=== PATIENT | male | born 1955 | race Caucasian/White ===

== ENCOUNTER 2016-08-29 18:14 | Emergency (ER) | payer OTHER ==
[~2016-08-29] VITALS: Ht 182.9 cm; Wt 130.0 kg
[~2016-08-29 18:14] MED LIST: 1-ME1LIQ PO; ASPI81TA82 PO; DILA4TAB10 PO; HYDR-2768 PO; MAGN400C2 PO; MYCO360 PO; OXYC10 PO; PROG1CAP PO; PROT40TA PO
[2016-08-29 18:16] VITALS: BP 163/78; PULSE 88; RESP 24; TEMP 98.4; O2SAT 98
[2016-08-29] MEDS ORDERED: TACR1CAP PO (18:41)
[2016-08-29] MEDS ORDERED: HYDR-3516 PO (18:41)
[2016-08-29] MEDS ORDERED: HYDR25TA5 PO (18:41)
[2016-08-29] MEDS ORDERED: SODIUM CHLOR 0.9% 1000 ML INJ 1,000 ML IV SCH (18:47)
[2016-08-29] MEDS ORDERED: SODIUM CHLORIDE 0.9% FLUSH 5 ML FLUSH IVF PRN (19:00)
[2016-08-29 19:30] LABS: BLOOD, URINE NEG (NEG); COMMENT (UR) CULT NOT INDICATED; CULTURE IF INDICATED CULT NOT INDICATED; GLUCOSE,URINE NEG (NEG); KETONE, URINE NEG (NEG); MUCUS URINE FEW /lpf (OCC); NITRITE,URINE NEG (NEG); PH, URINE 5.5 (5.0-8.5); SQUAMOUS EPITHELIAL CELL URINE <1 /hpf (0-5); URINE COLOR YELLOW (YELLW/STRAW)
[2016-08-29 19:31] LABS: AUTOMATED NEUTROPHIL # 2.3 TH/MM3 (1.8-7.7); BASOPHIL % 0.4 % (0.0-2.0); EOSINOPHIL # 0.1 TH/MM3 (0-0.4); EOSINOPHIL % 1.8 % (0.0-4.0); HEMATOCRIT 23.6 % (39.0-51.0); HEMO FLAGS DIFF FINAL; LYMPH % 15.9 % (9.0-44.0); LYMPHOCYTE # 0.5 TH/MM3 (1.0-4.8); MEAN CELL VOLUME 94.1 FL (80.0-100.0); MEAN CORPUSCULAR HEMOGLOBIN 31.6 PG (27.0-34.0); MEAN CORPUSCULAR HGB CONC 33.5 % (32.0-36.0); MONO % 7.4 % (0.0-8.0); NEUT % 74.5 % (16.0-70.0); PLATELET COUNT 145 TH/MM3 (150-450); RED BLOOD COUNT 2.51 MIL/MM3 (4.50-5.90); RED CELL DISTRIBUTION WIDTH 18.9 % (11.6-17.2); WHITE BLOOD COUNT 3.1 TH/MM3 (4.0-11.0)
[2016-08-29 19:36] LABS: APTT (PATIENT) 26.6 SEC (24.3-30.1); PROTHROMBIN TIME - PATIENT 11.1 SEC (9.8-11.6)
[2016-08-29 19:44] LABS: ANION GAP 7 MEQ/L (5-15); AST (GOT) 9 U/L (15-37); BICARBONATE 24.5 MEQ/L (21.0-32.0); BLOOD UREA NITROGEN 17 MG/DL (7-18); CHLORIDE 109 MEQ/L (98-107); GLOMERULAR FILTRATION RATE 43 ML/MIN (>89); POTASSIUM 4.1 MEQ/L (3.5-5.1); SODIUM (NA) 140 MEQ/L (136-145)
[2016-08-29 19:47] LABS: ALKALINE PHOSPHATASE 115 U/L (45-117); ALT (GPT) 25 U/L (12-78); TOTAL BILIRUBIN ADULT 0.7 MG/DL (0.2-1.0)
--- NOTE | 2016-08-29 20:58 | PD ---
HPI Chief Complaint: General Weakness Time Seen by Provider: 18:40 Travel History International Travel<30 days: No Contact w/Intl Traveler<30days: No Traveled to known affect area: No History of Present Illness HPI Patient is a 61-year-old male with history of anal cancer, presents to emergency room with complaints of generalized weakness. Patient reports that he last received chemotherapy 3 weeks ago. Patient reports that he has been feeling weak since July 2016. Reports that in July, he received one unit of blood, reports that he was supposed to receive 2 units of blood but did only got one unit. Patient concerned that he may be anemic requiring blood transfusion. Patient denies fever/chills. Denies chest pain/sob. Denies abdominal pain. Denies cough/congestion. No other c/o. PFSH Past Medical History Chemotherapy: Yes (08/04/16) Hypertension: Yes Medical other: Yes (rectal ca ) Influenza Vaccination: No Past Surgical History Other Surgery: Yes (liver transplant ) Social History Alcohol Use: No (unknown) Tobacco Use: No (1-2 ppd ) Substance Use: No Allergies-Medications (Allergen,Severity, Reaction): Coded Allergies: No Known Allergies (Unverified , 08/29/16) Reported Meds & Prescriptions Reported Meds & Active Scripts Active Reported Hydrocodone-Acetaminophen 5-325 mg Tab 1 Tab PO Q6H PRN Tacrolimus 1 Mg Cap 2 Mg PO Q12H Hydrochlorothiazide 25 Mg Tab 25 Mg PO DAILY Review of Systems General / Constitutional: No: Fever Eyes: No: Visual changes HENT: No: Headaches Cardiovascular: No: Chest Pain or Discomfort Respiratory: No: Shortness of Breath Gastrointestinal: No: Abdominal Pain Genitourinary: No: Dysuria Musculoskeletal: No: Pain Skin: No Rash Neurologic: Positive: Weakness Psychiatric: No: Depression Endocrine: No: Polydipsia Hematologic/Lymphatic: No: Easy Bruising Physical Exam Narrative GENERAL: nad, nontoxic SKIN: Warm and dry. HEAD: Atraumatic. Normocephalic. EYES: Pupils equal and round. No scleral icterus. No injection or drainage. ENT: No nasal bleeding or discharge. Mucous membranes pink and moist. NECK: Trachea midline. No JVD. CARDIOVASCULAR: Regular rate and rhythm. No murmur appreciated. RESPIRATORY: No accessory muscle use. Clear to auscultation. Breath sounds equal bilaterally. GASTROINTESTINAL: Abdomen soft, non-tender, nondistended. Hepatic and splenic margins not palpable. MUSCULOSKELETAL: No obvious deformities. No clubbing. No cyanosis. No edema. NEUROLOGICAL: Awake and alert. No obvious cranial nerve deficits. Motor grossly within normal limits. Normal speech. PSYCHIATRIC: Appropriate mood and affect; insight and judgment normal. Data Data Last Documented VS Vital Signs Date Time Temp Pulse Resp B/P Pulse Ox O2 Delivery O2 Flow Rate FiO2 08/29/16 21:00 74 18 117/59 98 08/29/16 18:16 98.4 Room Air Orders Complete Blood Count With Diff (08/29/16 18:47) Comprehensive Metabolic Panel (08/29/16 18:47) Lipase (08/29/16 18:47) Prothrombin Time / Inr (Pt) (08/29/16 18:47) Act Partial Throm Time (Ptt) (08/29/16 18:47) Urinalysis - C+S If Indicated (08/29/16 18:47) Iv Access Insert/Monitor (08/29/16 18:47) Sodium Chlor 0.9% 1000 Ml Inj (Ns 1000 M (08/29/16 18:47) Sodium Chloride 0.9% Flush (Ns Flush) (08/29/16 19:00) Electrocardiogram (08/29/16 18:47) Chest, Single Ap (08/29/16 19:46) Heparin Central Flush (Heparin Central F (08/29/16 21:15) Labs Laboratory Tests Test 08/29/16 08/29/16 18:58 19:04 White Blood Count 3.1 TH/MM3 Red Blood Count 2.51 MIL/MM3 Hemoglobin 7.9 GM/DL Hematocrit 23.6 % Mean Corpuscular Volume 94.1 FL Mean Corpuscular Hemoglobin 31.6 PG Mean Corpuscular Hemoglobin 33.5 % Concent Red Cell Distribution Width 18.9 % Platelet Count 145 TH/MM3 Mean Platelet Volume 10.2 FL Neutrophils (%) (Auto) 74.5 % Lymphocytes (%) (Auto) 15.9 % Monocytes (%) (Auto) 7.4 % Eosinophils (%) (Auto) 1.8 % Basophils (%) (Auto) 0.4 % Neutrophils # (Auto) 2.3 TH/MM3 Lymphocytes # (Auto) 0.5 TH/MM3 Monocytes # (Auto) 0.2 TH/MM3 Eosinophils # (Auto) 0.1 TH/MM3 Basophils # (Auto) 0.0 TH/MM3 CBC Comment DIFF FINAL Differential Comment Prothrombin Time 11.1 SEC Prothromb Time International 1.0 RATIO Ratio Activated Partial 26.6 SEC Thromboplast Time Sodium Level 140 MEQ/L Potassium Level 4.1 MEQ/L Chloride Level 109 MEQ/L Carbon Dioxide Level 24.5 MEQ/L Anion Gap 7 MEQ/L Blood Urea Nitrogen 17 MG/DL Creatinine 1.63 MG/DL Estimat Glomerular Filtration 43 ML/MIN Rate Random Glucose 115 MG/DL Calcium Level 8.2 MG/DL Total Bilirubin 0.7 MG/DL Aspartate Amino Transf 9 U/L (AST/SGOT) Alanine Aminotransferase 25 U/L (ALT/SGPT) Alkaline Phosphatase 115 U/L Total Protein 6.4 GM/DL Albumin 3.4 GM/DL Lipase 48 U/L Urine Color YELLOW Urine Turbidity CLEAR Urine pH 5.5 Urine Specific [place] 1.017 Urine Protein TRACE mg/dL Urine Glucose (UA) NEG mg/dL Urine Ketones NEG mg/dL Urine Occult Blood NEG Urine Nitrite NEG Urine Bilirubin NEG Urine Urobilinogen LESS THAN 2.0 MG/DL Urine Leukocyte Esterase NEG Urine WBC 1 /hpf Urine Squamous Epithelial <1 /hpf Cells Urine Mucus FEW /lpf Microscopic Urinalysis Comment CULT NOT INDICATED MDM Medical Decision Making Medical Screen Exam Complete: Yes Emergency Medical Condition: Yes Interpretation(s) EKG at 1901: Normal sinus rhythm at 70 bpm, QT/QTc 352/386, no acute ST-T wave changes Vital Signs Date Time Temp Pulse Resp B/P Pulse Ox O2 Delivery O2 Flow Rate FiO2 08/29/16 21:00 74 18 117/59 98 08/29/16 18:33 26 08/29/16 18:16 98.4 88 24 163/78 98 Room Air Laboratory Tests Test 08/29/16 08/29/16 18:58 19:04 White Blood Count 3.1 TH/MM3 (4.0-11.0) Red Blood Count 2.51 MIL/MM3 (4.50-5.90) Hemoglobin 7.9 GM/DL (13.0-17.0) Hematocrit 23.6 % (39.0-51.0) Mean Corpuscular Volume 94.1 FL (80.0-100.0) Mean Corpuscular Hemoglobin 31.6 PG (27.0-34.0) Mean Corpuscular Hemoglobin 33.5 % Concent (32.0-36.0) Red Cell Distribution Width 18.9 % (11.6-17.2) Platelet Count 145 TH/MM3 (150-450) Mean Platelet Volume 10.2 FL (7.0-11.0) Neutrophils (%) (Auto) 74.5 % (16.0-70.0) Lymphocytes (%) (Auto) 15.9 % (9.0-44.0) Monocytes (%) (Auto) 7.4 % (0.0-8.0) Eosinophils (%) (Auto) 1.8 % (0.0-4.0) Basophils (%) (Auto) 0.4 % (0.0-2.0) Neutrophils # (Auto) 2.3 TH/MM3 (1.8-7.7) Lymphocytes # (Auto) 0.5 TH/MM3 (1.0-4.8) Monocytes # (Auto) 0.2 TH/MM3 (0-0.9) Eosinophils # (Auto) 0.1 TH/MM3 (0-0.4) Basophils # (Auto) 0.0 TH/MM3 (0-0.2) CBC Comment DIFF FINAL Differential Comment Prothrombin Time 11.1 SEC (9.8-11.6) Prothromb Time International 1.0 RATIO Ratio Activated Partial 26.6 SEC Thromboplast Time (24.3-30.1) Sodium Level 140 MEQ/L (136-145) Potassium Level 4.1 MEQ/L (3.5-5.1) Chloride Level 109 MEQ/L (98-107) Carbon Dioxide Level 24.5 MEQ/L (21.0-32.0) Anion Gap 7 MEQ/L (5-15) Blood Urea Nitrogen 17 MG/DL (7-18) Creatinine 1.63 MG/DL (0.60-1.30) Estimat Glomerular Filtration 43 ML/MIN (>89) Rate Random Glucose 115 MG/DL (74-106) Calcium Level 8.2 MG/DL (8.5-10.1) Total Bilirubin 0.7 MG/DL (0.2-1.0) Aspartate Amino Transf 9 U/L (15-37) (AST/SGOT) Alanine Aminotransferase 25 U/L (12-78) (ALT/SGPT) Alkaline Phosphatase 115 U/L (45-117) Total Protein 6.4 GM/DL (6.4-8.2) Albumin 3.4 GM/DL (3.4-5.0) Lipase 48 U/L (73-393) Urine Color YELLOW (YELLW/STRAW) Urine Turbidity CLEAR (CLEAR) Urine pH 5.5 (5.0-8.5) Urine Specific [place] 1.017 (1.002-1.035) Urine Protein TRACE mg/dL (NEG-TRACE) Urine Glucose (UA) NEG mg/dL (NEG) Urine Ketones NEG mg/dL (NEG) Urine Occult Blood NEG (NEG) Urine Nitrite NEG (NEG) Urine Bilirubin NEG (NEG) Urine Urobilinogen LESS THAN 2.0 MG/DL (LESS THAN 2.0) Urine Leukocyte Esterase NEG (NEG) Urine WBC 1 /hpf (0-5) Urine Squamous Epithelial <1 /hpf (0-5) Cells Urine Mucus FEW /lpf (OCC) Microscopic Urinalysis Comment CULT NOT INDICATED Differential Diagnosis Symptomatic anemia, electrolyte abnormality, liver failure Narrative Course Patient is a 61-year-old male who presents to emergency room for evaluation of generalized weakness. Patient reports that he has been feeling weak since July, reports that he has been anemic and required blood transfusions. Reports that he required 2 units of blood contusion July but only got 1 unit of blood. Patient concerned that his weakness may be from anemia and that he may require blood transfusion. Patient afebrile, vital signs stable. Hemoglobin 7.9 which is stable at this time, this was reviewed with patient. Discussed with him that he will need to follow-up with his primary care doctor, as well as his oncologist. Creatinine is 1.63. Patient was given 1 L fluid in the emergency room, patient is dehydrated, discussed with patient need to maintain his fluid intake. Signs and symptoms of when to return to the emergency room reviewed patient in detail. Diagnosis Primary Impression: Anemia Qualified Code: D64.9 - Anemia, unspecified type Additional Impressions: Dehydration Thrombocytopenia Patient Instructions: General Instructions Additional Instructions: Please return to ER as needed Please follow-up with your primary care doctor as well as your oncologist as soon as possible Disposition: 01 DISCHARGE HOME Condition: Stable Annette Henley DO Aug 29, 2016 20:58
[2016-08-29 21:00] VITALS: BP 117/59
--- NOTE | 2016-08-29 21:21 | RADRPT ---
EXAM DATE/TIME: 08/29/2016 20:29 [facility] COMPARISON: No previous studies available for comparison. INDICATIONS : Patient complains of cough. MEDICAL HISTORY : Carcinoma, anal. SURGICAL HISTORY : [id number]. ENCOUNTER: Initial ACUITY: 1 week PAIN SCORE: 0/10 LOCATION: Chest FINDINGS: The heart size is normal. The lungs are grossly clear. The patient has a C2 compatible [id number] t in place from the right internal jugular approach. No effusion is seen. CONCLUSION: No acute abnormality is seen. Chandler Hurley MD on August 29, 2016 at 20:49 Board Certified Radiologist. This report was verified electronically.
--- NOTE | 2016-08-30 14:11 | EKG ---
Date Performed: 08/29/2016 Time Performed: 19:01:03 PTAGE: 61 years EKG: Sinus rhythm NORMAL ECG NO PREVIOUS TRACING DOCTOR: Rudi Elias Interpretating Date/Time 08/30/2016 14:10:08
== END 2016-08-29 21:45 | disposition home or self-care (01) ==
LOC: NEPA 18:14
DX: D64.9 Anemia, unspecified (principal); E86.0 Dehydration; D69.6 Thrombocytopenia, unspecified; I10 Essential (primary) hypertension; Z85.048 Personal history of other malignant neoplasm of rectum, rectosigmoid junction, and anus
CPT/HCPCS: 71010; 80053; 81001; 83690; 85025; 85610; 85730; 93005; 96360; 96361; 99285; J1642; J7030

== ENCOUNTER → 2017-05-08 | Outpatient (CLI) | payer OTHER ==
[~2017-05-08] MED LIST changes: -1-ME1LIQ PO; +AMLO2.5T PO; +ANDR1GEL TOPICAL; -ASPI81TA82 PO; -DILA4TAB10 PO; +FURO40TA PO; -HYDR-2768 PO; +HYDR-3516 PO; +HYDR25TA5 PO; -MAGN400C2 PO; +MORP1TAB25 PO; +MSIR30 PO; -MYCO360 PO; -OXYC10 PO; -PROG1CAP PO; -PROT40TA PO; +TACR1 PO; +TACR1CAP PO; +ZANT150T2 PO
--- NOTE | 2017-05-08 12:35 | RADRPT ---
EXAM DATE/TIME: 05/08/2017 12:14 [facility] COMPARISON: CHEST SINGLE AP, August 29, 2016, 20:29. INDICATIONS : Evaluate for penumonia, pneumothorax, or communicable disease. Pre op for colostomy. MEDICAL HISTORY : Hypertension. Carcinoma, colon. Chemotherapy. Smoker. SURGICAL HISTORY : Liver transplant. ENCOUNTER: Initial ACUITY: 1 day PAIN SCORE: 0/10 LOCATION: chest FINDINGS: The heart is normal in size. There are moderate COPD changes. These are stable compared to previous. The [id number] has been removed. The osseous structures demonstrate degenerative changes in the spine but are otherwise intact. CONCLUSION: 1. COPD changes. No acute abnormality. Jayjay Badillo MD on May 08, 2017 at 12:33 Board Certified Radiologist. This report was verified electronically.
--- NOTE | 2017-05-09 16:48 | EKG ---
Date Performed: 05/08/2017 Time Performed: 11:56:00 PTAGE: 62 years EKG: Sinus rhythm NORMAL ECG PREVIOUS TRACING 08/29/2016 @ 19.01 Compared to prior tracing no significant change DOCTOR: Onesimo Garcia Interpretating Date/Time 05/09/2017 16:48:18
== END ==
LOC: CPRE 10:50
PROVIDERS: ATTEND Colon & Rectal Surgery
DX: Z01.810 Encounter for preprocedural cardiovascular examination (principal); Z01.818 Encounter for other preprocedural examination; C21.1 Malignant neoplasm of anal canal
CPT/HCPCS: 71020; 93005

== ENCOUNTER 2017-05-12 10:54 | Inpatient (IN) | payer OTHER, MEDICARE ==
[~2017-05-12] VITALS: Ht 180.3 cm; Wt 113.5 kg
[~2017-05-12 10:54] MED LIST changes: -HYDR-3516 PO; -HYDR25TA5 PO; -TACR1CAP PO
[2017-05-12] MEDS ORDERED: DEXAMETHASONE SOD PHOS 4 MG/ML VIAL IV ONE (12:00)
[2017-05-12] MEDS ORDERED: PHENYLEPHRINE HCL 10 MG/ML VIAL IV ONE (12:00)
[2017-05-12] MEDS ORDERED: ceFAZolin INJ 1,000 MG VIAL IV ONE (12:00)
[2017-05-12] MEDS ORDERED: PHENYLEPH/NS 1000 MCG/10 ML SYR IV ONE (12:00)
[2017-05-12] MEDS ORDERED: ROCURONIUM INJ 50 MG/5 ML SYRINGE IV PUSH ONE ×3 (12:00→16:17)
[2017-05-12] MEDS ORDERED: LIDOCAINE HCL 1% PF 5 ML AMPULE OTHER ONE (12:00)
[2017-05-12] MEDS ORDERED: ONDANSETRON HCL 4 MG/2 ML VIAL IV PUSH ONE (12:00)
[2017-05-12] MEDS ORDERED: ePHEDrine/NS 25 MG/5 ML SYR IV ONE (12:00)
[2017-05-12] MEDS ORDERED: PROPOFOL 200 MG/20 ML AMP IV ONE ×2 (12:00)
[2017-05-12] MEDS ORDERED: DEXT 5%-NACL 0.9% 1000 ML INJ 1,000 ML IV SCH (12:15)
[2017-05-12] MEDS ORDERED: ceFAZolin 1,000 MG/NS 100 ML IV SCH ×2 (12:15)
[2017-05-12] MEDS ORDERED: METRONIDAZOLE 500 MG/100 ML ISONTONIC SOLN IV SCH (12:15)
[2017-05-12] MEDS ORDERED: ALVIMOPAN 12 MG CAPSULE - On Call PO SCH (12:15)
[2017-05-12] MEDS ORDERED: INSULIN HUMAN REGULAR 1,000 UNITS/10 ML VIAL SQ PRN (12:30)
[2017-05-12] MEDS ORDERED: CHLORHEXIDINE GLUCONATE 2 % 1 PACK (2 CLOTHS) TOPICAL PRN (12:30)
[2017-05-12] MEDS ORDERED: METOPROLOL TARTRATE 25 MG TAB PO PRN (12:30)
[2017-05-12] MEDS ORDERED: LACTATED RINGER'S 1000 ML IV PRN (12:30)
[2017-05-12] MEDS ORDERED: SODIUM CHLORID 0.9% 500 ML IV PRN (12:30)
[2017-05-12] MEDS ORDERED: POVIDONE IODINE 5% (ANTISEPSIS KIT) 4 APPLICATIONS EACH NARE PRN (12:30)
[2017-05-12] MEDS ORDERED: RESP: ALBUTEROL 2.5 MG/3 ML NEB (SCH) ONE ×2 (13:15→15:01)
[2017-05-12] MEDS ORDERED: MIDAZOLAM HCL 2 MG/2 ML VIAL ONE (13:20)
--- NOTE | 2017-05-12 14:41 | PD.WCN.NOT ---
Wound Consult Description: Consult placed on 05/12/17 @ 1301 for pre op ostomy marking for permanent colostomy. Communicated with: Patient Additional Information: Patient seen in [facility] for ostomy marking. Patient sat up on stretcher after being placed on a bed vinson upon arrival. Patient was asked to cough to assess for the rectus muscles. 2 sites chosen for permanent colostomy and marked with X1 and X2. Both sites were placed outside the umbilicus area and in the rectus muscle on the upper left and lower left quadrants of the abdomen. There were no folds or creases in these areas. Patient states he and his will be taking care of the ostomy. Patient states that he wears his pants and belt lower on his hips. Phyllis Elias [facility] May 12, 2017 14:41
[2017-05-12] MEDS ORDERED: methylPREDNISolone SOD SUCC 125 MG/2 ML VIAL ONE (15:01)
[2017-05-12] MEDS ORDERED: HYDROmorphone HCL PF 2 MG/ML VIAL ONE (15:25)
[2017-05-12] MEDS ORDERED: SUGAMMADEX SODIUM 200 MG/2 ML VIAL IV PUSH ONE ×2 (15:25)
[2017-05-12] MEDS ORDERED: HYDROmorphone HCL PF 1 MG/ML VIAL ONE (17:22)
[2017-05-12] MEDS ORDERED: BENZOCAINE 6 MG/MENTHOL 10 MG LOZENGE BUCCAL PRN (17:30)
[2017-05-12] MEDS ORDERED: SODIUM CHLORIDE 0.9% FLUSH 10 ML FLUSH IV FLUSH PRN (17:30)
[2017-05-12] MEDS ORDERED: ENALAPRILAT 1.25 MG/ML VIAL IV PUSH PRN (17:30)
[2017-05-12] MEDS ORDERED: NALOXONE HCL 0.4 MG/ML AMP IV PUSH PRN (17:30)
[2017-05-12] MEDS ORDERED: Post-op Orders (for Pharmacy) MISC XX ONE (17:30)
[2017-05-12] MEDS ORDERED: POTASSIUM CHLOR 20 MEQ PREMIX 100 ML IV PRN (17:30)
[2017-05-12] MEDS ORDERED: POTASSIUM CHLOR 40 MEQ PREMIX 100 ML IV PRN (17:30)
[2017-05-12] MEDS ORDERED: oxyCODONE/ACETAMINOPHEN 5 MG/325 MG TAB PO PRN ×2 (17:30)
[2017-05-12] MEDS ORDERED: *HYDROmorphone PF 1 MG VIAL PERIprocedural Use ONLY ONE ×2 (17:31→18:29)
[2017-05-12] MEDS ORDERED: *MEPERIDINE 25 MG INJ VIAL PERIprocedural Use ONLY ONE (17:40)
[2017-05-12] MEDS ORDERED: *hydrOXYzine 25 MG VIAL PERIprocedural Use ONLY IM ONE (17:56)
[2017-05-12] MEDS: D5-LR + KCL 20 MEQ INJ 1,000 ML IV SCH (18:00)
[2017-05-12] MEDS: METOCLOPRAMIDE HCL 10 MG/2 ML VIAL IVS SCH (18:00)
[2017-05-12] MEDS ORDERED: PILL SPLITTER OTHER PRN (18:15)
[2017-05-12] MEDS ORDERED: *morphine SULFATE 8 MG/ML PERIprocedure ONLY ONE (18:21)
[2017-05-12 18:38] LABS: BASOPHIL % 0.1 % (0.0-2.0); HEMATOCRIT 42.5 % (39.0-51.0); LYMPHOCYTE # 0.4 TH/MM3 (1.0-4.8); MEAN CORPUSCULAR HEMOGLOBIN 29.1 PG (27.0-34.0); MEAN CORPUSCULAR HGB CONC 33.1 % (32.0-36.0); NEUT % 95.9 % (16.0-70.0); PLATELET COUNT 186 TH/MM3 (150-450); RED BLOOD COUNT 4.83 MIL/MM3 (4.50-5.90); RED CELL DISTRIBUTION WIDTH 14.1 % (11.6-17.2); WHITE BLOOD COUNT 20.9 TH/MM3 (4.0-11.0)
[2017-05-12 18:45] LABS: HEMO FLAGS AUTO DIFF
[2017-05-12] MEDS ORDERED: DO NOT ADM ANY ANTICOAGULANT DRUGS PRN (18:45)
[2017-05-12 18:55] VITALS: BP 155/78; PULSE 90; RESP 16; TEMP 98.8; O2SAT 98
[2017-05-12 18:59] LABS: BICARBONATE 19.5 MEQ/L (21.0-32.0); POTASSIUM 3.6 MEQ/L (3.5-5.1)
[2017-05-12 19:00] VITALS: PULSE 90
[2017-05-12] MEDS: MORPHINE SULFATE 30 MG/30 ML PCA IV SCH ×2 (19:38→20:20)
[2017-05-12 19:49] LABS: BANDS 9 % (0-6); METAMYELOCYTES 2 % (0-1); NEUTROPHIL # MANUAL DIFF 19.6 TH/MM3 (1.8-7.7); PLATELET ESTIMATE SMEAR NORMAL (NORMAL); PLATELET MORPHOLOGY NORMAL (NORMAL); POLYS (SEG NEUTROPHILS) 83 % (16-70); SCAN/DIFF FINAL DIFF MANUAL; WBC DIFF SAMPLE 100
--- NOTE | 2017-05-12 19:56 | MP ---
cc: SARAH BORDEN,ROD ANDERS MD, DR., DATE OF SURGERY 05/12/17 PREOPERATIVE DIAGNOSIS 1. Anal carcinoma. 2. Ventral hernia POSTOPERATIVE DIAGNOSIS 1. Anal carcinoma 2. Ventral hernia PROCEDURE 1. Abdominal perineal resection with permanent colostomy 2. Omental flap 3. Ventral hernia repair ANESTHESIA General endotracheal SURGEON Dr. Marquita Donaldson LAWN CARETAKER Dr. Gurdeep Garcia ESTIMATED BLOOD LOSS 600 mL. OPERATING TIME 2 hours and 15 minutes OPERATIVE FINDINGS This patient is approximately four or five years status post liver transplant for hepatitis C at the [facility] in [place]. The patient developed anal carcinoma and was treated with radiation and a partial dose of chemotherapy. However, he could not tolerate the chemotherapy. He therefore completed his radiation therapy and, upon completion of radiation therapy, continued to have severe anal pain and there was an indolent ulcer present in the right lateral anal canal. Biopsies of this ulcer were done and showed residual squamous cell carcinoma. For this reason, abdominal perineal resection was recommended. At surgery, a rectosigmoidectomy was done with abdominal perineal resection and permanent colostomy and an omental flap was placed in the pelvis. Exploration of the abdominal cavity revealed that the right portion of the liver was palpable and was normal. He did have a right flank hernia from his previous Chevron incision from his liver transplant and this was repaired as well. The remainder of the abdominal exploration was normal with small bowel remainder of the colon was palpably normal and I could not palpate the left lobe of the liver. OPERATIVE TECHNIQUE The patient was placed on the table in the supine position. After adequate general endotracheal anesthesia, a midline incision was made from the pubis to the Xiphoid to the right of the umbilicus. The linea alba was entered in the upper abdomen and the abdominal cavity was entered with the above-mentioned findings. There was not much in the way of adhesions. He did have this right flank hernia from his previous Chevron incision from his liver transplant. Omentum was in that and that was reduced easily. Our attention was turned to the sigmoid colon and the descending colon. It was mobilized along its peritoneal reflection. The left ureter was identified and protected at all times. There was a lot of fibrosis from probable previous mobilization of this portion of the colon, possibly for his liver transplant. Nevertheless, the superior hemorrhoidal vessels were doubly clamped, cut and doubly ligated with 0 Vicryl ligature and the retrorectal space was entered and, after getting through the fibrosis in the upper pelvis, the retrorectal dissection was relatively easy other than he had a very small male pelvis. The lateral pelvic peritoneum was incised bilaterally and the dissection was taken down laterally and posteriorly. Anteriorly, it was not easy to determine the cul-de-sac posterior to the prostate, but Denonvilliers fascia was eventually incised and dissection was taken down to the pelvic floor. Once this was done, I then went below and did the perineal portion of the resection and Gelpi retractors were placed and an elliptical skin incision was made around the buttocks and anal canal. The incision was taken down into the ischiorectal fat and then posteriorly anterior to the coccyx and the pelvis was entered posteriorly. Dissection was then taken around the levators incising the levators bilaterally. Care was taken in the right lateral to right anterior position where this ulcerated carcinoma was to take plenty of surrounding fatty tissue while removing this rectum. Once everything except the anterior portion of the rectum was detached, the sigmoid mesentery was clamped, cut and ligated with 0 Vicryl ligatures and the sigmoid was divided with an Ethicon BERT 55 stapling device and the sigmoid was then handed down to the perineum and delivered from the perineal wound. The anterior dissection was then completed and the specimen was removed from the table. Some posterior pelvic fatty tissue was removed and sent separately, although this did not appear to be a portion of the mesorectum. Once this was done, hemostasis was maintained with electrocautery. Next, the pelvis was irrigated thoroughly with 2 liters of saline solution from above and hemostasis was taken care of with electrocautery. Fibrillar was used anteriorly along the prostate bed and then the previously mobilized omentum from the right side of the transverse colon and stomach was brought down the left colic gutter and placed in the pelvis. The pelvic wound was then closed using interrupted 0 Vicryl sutures to close the subcutaneous tissue and then the skin was closed with interrupted 0 Vicryl subcuticular sutures. Dressing was applied. Next, the previously mobilized sigmoid colon was brought out through the previously marked stoma site in the left upper quadrant in the mid portion of the rectus muscle and then the bowels were replaced in the abdominal cavity in an rn palliative manner after thorough irrigation and inspection for hemostasis. The right sided ventral hernia was repaired with a single running #1 PDS suture. Next, the midline incision was closed with a double-stranded #! PDS fully closing the wound and then the subcutaneous tissue was irrigated thoroughly with 2 liters of saline solution, aspirated dry and the skin was closed with running 3-0 Vicryl subcuticular suture. The colostomy was matured with a short nipple using interrupted 3-0 Vicryl sutures and a 57-mm appliance was placed. Dressings were applied. It should be mentioned that a flat Boni drain was placed in the pelvis and brought out through a right lower quadrant separate stab wound. It was sutured into place with a nylon suture. Sponge, needle and instrument counts were reported as correct. Estimated blood loss was 600 mL. The patient tolerated the procedure well and left the operating room in good condition. MD CHANCE Garcia/ /5:35 PM /7:31 PM MTDLaurie
[2017-05-12 20:00] VITALS: BP 155/78; PULSE 90; PULSE 94; RESP 16; TEMP 98.8; O2SAT 98
[2017-05-12] MEDS: ZOLPIDEM TARTRATE 5 MG TAB PO PRN (20:59)
[2017-05-12] MEDS: ceFAZolin 2 GM PREMIX 50 ML IV SCH (21:00)
[2017-05-12] MEDS: metroNIDAZOLE 500 MG INJ 100 ML IV SCH (21:00)
[2017-05-12 22:00] VITALS: PULSE 92
[2017-05-12] MEDS: PCA - TOTAL MG MORPHINE DELIVERED PER SHIFT SCH (22:00)
[2017-05-12] MEDS: MORPHINE SULFATE 4 MG/ML INJ IV PRN (22:48)
[2017-05-12 23:00] VITALS: PULSE 90
[2017-05-12] MEDS: TACROLIMUS 1 MG CAP PO SCH (23:12)
[2017-05-12] MEDS: MORPHINE SULFATE 30 MG CONTROLLED RELEASE TAB PO SCH (23:13)
[2017-05-13] VITALS (28 sets, daily range): BP systolic 142–170; BP diastolic 72–88; PULSE 74–104; RESP 16–22; TEMP 98.2–98.8; O2SAT 94–99
[2017-05-13] MEDS: METOCLOPRAMIDE HCL 10 MG/2 ML VIAL IVS SCH ×5 (00:12→23:38)
[2017-05-13] MEDS: MORPHINE SULFATE 4 MG/ML INJ IV PRN ×9 (00:12→17:42)
[2017-05-13] MEDS: MORPHINE SULFATE 30 MG/30 ML PCA IV SCH ×3 (00:39→17:42)
[2017-05-13] MEDS: ceFAZolin 2 GM PREMIX 50 ML IV SCH ×2 (03:25→12:25)
[2017-05-13] MEDS: metroNIDAZOLE 500 MG INJ 100 ML IV SCH ×2 (05:00→13:13)
[2017-05-13] MEDS: PCA - TOTAL MG MORPHINE DELIVERED PER SHIFT SCH ×3 (06:00→21:34)
[2017-05-13 06:03] LABS: AUTOMATED NEUTROPHIL # 15.9 TH/MM3 (1.8-7.7); BASOPHIL % 0.1 % (0.0-2.0); HEMATOCRIT 40.8 % (39.0-51.0); HEMO FLAGS DIFF FINAL; LYMPH % 1.3 % (9.0-44.0); LYMPHOCYTE # 0.2 TH/MM3 (1.0-4.8); MEAN CORPUSCULAR HEMOGLOBIN 28.9 PG (27.0-34.0); MEAN CORPUSCULAR HGB CONC 33.7 % (32.0-36.0); MONO % 3.4 % (0.0-8.0); NEUT % 95.2 % (16.0-70.0); PLATELET COUNT 148 TH/MM3 (150-450); RED BLOOD COUNT 4.75 MIL/MM3 (4.50-5.90); RED CELL DISTRIBUTION WIDTH 14.4 % (11.6-17.2); WHITE BLOOD COUNT 16.7 TH/MM3 (4.0-11.0)
[2017-05-13 06:31] LABS: BICARBONATE 24.3 MEQ/L (21.0-32.0); POTASSIUM 4.3 MEQ/L (3.5-5.1)
[2017-05-13] MEDS: D5-LR + KCL 20 MEQ INJ 1,000 ML IV SCH ×3 (07:20→20:38)
[2017-05-13] MEDS: ALVIMOPAN 12 MG CAPSULE - Post-op dosing PO SCH ×2 (08:40→20:37)
[2017-05-13] MEDS: amLODIPine BESYLATE 5 MG TAB PO SCH (08:40)
[2017-05-13] MEDS: PANTOPRAZOLE SODIUM 40 MG VIAL IVP SCH (08:40)
[2017-05-13] MEDS: TACROLIMUS 1 MG CAP PO SCH ×2 (08:40→20:38)
[2017-05-13] MEDS: SODIUM CHLORIDE 0.9% FLUSH 10 ML FLUSH IV FLUSH SCH ×2 (08:41→20:38)
[2017-05-13] MEDS ORDERED: TESTOSTERONE TOPICAL SCH (09:00)
[2017-05-13] MEDS ORDERED: TESTOSTERONE 50 MG TOPICAL SCH (09:00)
[2017-05-13] MEDS: MORPHINE SULFATE 30 MG CONTROLLED RELEASE TAB PO SCH ×2 (09:29→21:45)
--- NOTE | 2017-05-13 11:38 | PD.WCN.NOT ---
Wound Consult Description: Consult placed on 05/12/17 for new ostomy teaching for colostomy per Dr Donaldson. Communicated with: Patient RN Recommendation: Observe staff open pouch, empty pouch of effluent, and close pouch. Read information regarding Colostomy surgery provided from [facility] in the kit left at bedside. Additional Information: Patient seen on for ostomy assessment, educational materials, and teaching. Ostomy Type: Colostomy (permanent) Surgeon: Chandler Donaldson MD Date of Surgery: May 12, 2017 Complete: Education materials Educated patient on: Staff will be emptying pouch of effluent, observe Reading the educational booklet left for patient at bedside Stoma appearance Consistency of effluent in pouch Changing the barrier every 5-7 days Changing the pouch as needed Additional information Patient seen on for Ostomy assessment and teaching. Patient states that he has been in pain and states pushing the button provided for relief. Education was given to patient as described above. Stoma is visualized on the left upper abdomen and measuring 1 1/2" presently requiring an appliance in size 2 1/4". Stoma is red, round, moist, functioning with ~10ml dark green soft liquid noted to pouch. Barrier and pouch are intact and noted without leaks. It was explained to the patient that typewriter operator automatic would be seeing him daily except weekends. Phyllis Elias [facility] May 13, 2017 11:38
[2017-05-13] MEDS: ONDANSETRON HCL 4 MG/2 ML VIAL IV PUSH PRN ×2 (12:26→21:44)
--- NOTE | 2017-05-13 13:55 | HHI.PR ---
Subjective Remarks Still with pain despite large narcotic doses due to chronic pain med use pre op Objective Vital Signs Date Time Temp Pulse Resp B/P (MAP) Pulse Ox O2 Delivery O2 Flow Rate FiO2 05/13/17 12:39 161/78 (105) 05/13/17 11:30 98.4 87 22 170/77 (108) 95 05/13/17 10:00 78 05/13/17 09:00 74 05/13/17 08:41 20 05/13/17 08:00 88 05/13/17 08:00 98.6 88 20 158/88 (111) 96 05/13/17 07:25 20 05/13/17 07:00 86 05/13/17 06:00 74 05/13/17 06:00 20 05/13/17 05:00 90 05/13/17 04:00 98.7 84 20 142/83 (102) 96 05/13/17 04:00 82 05/13/17 03:00 88 05/13/17 02:00 88 05/13/17 01:00 87 05/13/17 00:39 20 05/13/17 00:00 98.8 87 16 162/78 (106) 99 05/13/17 00:00 88 05/12/17 23:00 90 05/12/17 22:00 92 05/12/17 22:00 22 05/12/17 20:20 20 05/12/17 20:00 94 05/12/17 20:00 98.8 90 16 155/78 (103) 98 05/12/17 20:00 98.8 90 16 155/78 (103) 98 05/12/17 19:38 18 05/12/17 19:00 90 05/12/17 18:55 98.8 90 16 155/78 (103) 98 05/12/17 18:30 98.6 97 15 138/66 (90) 98 Nasal Cannula 3 05/12/17 18:15 94 15 136/64 (88) 98 Nasal Cannula 3 05/12/17 18:00 97 16 140/68 (92) 98 Nasal Cannula 3 05/12/17 17:45 95 16 138/64 (88) 98 Nasal Cannula 3 05/12/17 17:30 97 17 134/65 (88) 94 Nasal Cannula 3 05/12/17 17:23 97.8 96 18 134/68 (90) 94 Nasal Cannula 3 I/O 05/12/17 05/12/17 05/12/17 05/13/17 05/13/17 05/13/17 07:00 15:00 23:00 07:00 15:00 23:00 Intake Total 200 ml 3000 ml 420 ml 50 ml Output Total 825 ml 1810 ml Balance 200 ml 2175 ml -1390 ml 50 ml Intake Oral 420 ml IV Total 200 ml 300 ml 50 ml Other 2700 ml Output Urine Total 175 ml 1650 ml Stool Total 10 ml Drainage Total 50 ml 150 ml Estimated Blood Loss 600 ml # Bowel Movements 1 Result Diagram: 05/13/17 0533 05/13/1733 Objective Remarks VS-S Abd: obese,soft,stoma pink I&Os and Labs-OK Assessment and Plan Assessment and Plan Stable with pain POD#1 Chandler Donaldson MD May 13, 2017 13:55
[2017-05-13] MEDS ORDERED: ALVIMOPAN 12 MG CAPSULE PO SCH (21:00)
[2017-05-13] MEDS: ZOLPIDEM TARTRATE 5 MG TAB PO PRN (23:56)
[2017-05-14] VITALS (19 sets, daily range): BP systolic 155–165; BP diastolic 75–89; PULSE 78–108; RESP 18–21; TEMP 97.5–99.1; O2SAT 92–94
[2017-05-14] MEDS: MORPHINE SULFATE 30 MG/30 ML PCA IV SCH ×2 (00:21→08:55)
[2017-05-14] MEDS: D5-LR + KCL 20 MEQ INJ 1,000 ML IV SCH ×3 (04:05→21:52)
[2017-05-14 05:45] LABS: AUTOMATED NEUTROPHIL # 12.6 TH/MM3 (1.8-7.7); BASOPHIL # 0.1 TH/MM3 (0-0.2); BASOPHIL % 0.4 % (0.0-2.0); EOSINOPHIL % 0.1 % (0.0-4.0); HEMATOCRIT 36.8 % (39.0-51.0); HEMO FLAGS DIFF FINAL; LYMPH % 3.7 % (9.0-44.0); LYMPHOCYTE # 0.5 TH/MM3 (1.0-4.8); MEAN CELL VOLUME 85.1 FL (80.0-100.0); MEAN CORPUSCULAR HEMOGLOBIN 28.8 PG (27.0-34.0); MEAN CORPUSCULAR HGB CONC 33.9 % (32.0-36.0); MONO % 4.5 % (0.0-8.0); NEUT % 91.3 % (16.0-70.0); PLATELET COUNT 141 TH/MM3 (150-450); RED BLOOD COUNT 4.33 MIL/MM3 (4.50-5.90); RED CELL DISTRIBUTION WIDTH 14.7 % (11.6-17.2); WHITE BLOOD COUNT 13.8 TH/MM3 (4.0-11.0)
[2017-05-14] MEDS: PCA - TOTAL MG MORPHINE DELIVERED PER SHIFT SCH (05:46)
[2017-05-14] MEDS: METOCLOPRAMIDE HCL 10 MG/2 ML VIAL IVS SCH ×3 (05:46→18:00)
[2017-05-14 06:14] LABS: BICARBONATE 21.8 MEQ/L (21.0-32.0); POTASSIUM 4.1 MEQ/L (3.5-5.1)
[2017-05-14] MEDS: PANTOPRAZOLE SODIUM 40 MG VIAL IVP SCH (08:58)
[2017-05-14] MEDS: SODIUM CHLORIDE 0.9% FLUSH 10 ML FLUSH IV FLUSH SCH ×2 (08:58→21:00)
[2017-05-14] MEDS: ALVIMOPAN 12 MG CAPSULE - Post-op dosing PO SCH ×2 (08:58→20:57)
[2017-05-14] MEDS: TACROLIMUS 1 MG CAP PO SCH ×2 (08:58→20:57)
[2017-05-14] MEDS: amLODIPine BESYLATE 5 MG TAB PO SCH (09:00)
[2017-05-14] MEDS: MORPHINE SULFATE 30 MG CONTROLLED RELEASE TAB PO SCH ×2 (10:35→22:37)
--- NOTE | 2017-05-14 12:55 | PD.WCN.NOT ---
Wound Consult Description: Consult placed on 05/12/17 for new ostomy teaching for colostomy per Dr Donaldson. Communicated with: Patient JUAN Frankel Recommendation: Participate in opening pouch, emptying pouch of effluent, and closing pouch. Read information regarding Colostomy surgery provided from [facility] in the kit left at bedside and write down any questions you may have in preparation for tomorrow's teaching session with as scheduled. Additional Information: Patient seen on for ostomy assessment and teaching. Ostomy Type: Colostomy (permanent) Surgeon: Chandler Donaldson MD Date of Surgery: May 12, 2017 Complete: Education materials ([facility] kit provided for patient to read and write down any questions he or his may have), Other (appliances ordered for next barrier/pouch change prior to discharge, the remaining appliances are for patient to take homw) Educated patient on: Participating in the care of his ostomy Emptying pouch when 1/3-1/2 full Opening and closing pouch Position of pouch when patient is up in chair and ambulating Stoma size and appearance Amount and type of output How often to change appliance and pouch. Additional information Patient seen on for ostomy assessment and teaching. Questions answered regarding the emptying of the pouch and position of the pouch when in bed vs ambulating and sitting up in chair. Pouch was emptied of dark green liquid effluent ~110ml. Patient was shown how to open and close pouch. Patient states that he has begun to read the educational booklet provided at bedside. Stoma is red, round, moist, moderately protruding, lumen noted in center of stoma and functioning. Plans for more teaching with tomorrow 05/15/17 @Su. Phyllis Elias [facility] May 14, 2017 12:55
--- NOTE | 2017-05-14 13:43 | HHI.PR ---
Subjective Remarks Better pain control. No Nor V. Objective Vital Signs Date Time Temp Pulse Resp B/P (MAP) Pulse Ox O2 Delivery O2 Flow Rate FiO2 05/14/17 12:03 92 05/14/17 11:35 21 05/14/17 11:00 98.1 95 21 155/75 (101) 92 05/14/17 11:00 108 05/14/17 10:00 84 05/14/17 09:00 90 05/14/17 09:00 21 05/14/17 08:55 20 05/14/17 08:00 82 05/14/17 07:00 89 05/14/17 07:00 99.1 78 21 160/77 (104) 94 05/14/17 06:00 90 05/14/17 05:46 18 05/14/17 05:00 87 05/14/17 04:00 86 05/14/17 03:30 98.5 87 18 156/79 (104) 93 05/14/17 03:00 86 05/14/17 02:00 88 05/14/17 01:00 81 05/14/17 00:21 18 05/14/17 00:00 89 05/13/17 23:30 98.2 88 18 160/75 (103) 95 05/13/17 23:00 83 05/13/17 22:00 84 05/13/17 21:34 18 05/13/17 21:00 92 05/13/17 20:00 88 05/13/17 20:00 98.4 85 18 154/78 (103) 94 05/13/17 19:00 95 05/13/17 18:16 100 05/13/17 17:42 22 05/13/17 17:08 104 05/13/17 16:00 100 05/13/17 15:31 98.7 91 19 150/72 (98) 94 05/13/17 15:00 86 05/13/17 14:00 90 05/13/17 14:00 19 I/O 05/13/17 05/13/17 05/13/17 05/14/17 05/14/17 05/14/17 07:00 15:00 23:00 07:00 15:00 23:00 Intake Total 420 ml 1200 ml 720 ml 1990 ml Output Total 1810 ml 1500 ml 1700 ml Balance -1390 ml 1200 ml -780 ml 290 ml Intake Oral 420 ml 720 ml 240 ml IV Total 1200 ml 1750 ml Output Urine Total 1650 ml 1300 ml 1550 ml Stool Total 10 ml Drainage Total 150 ml 200 ml 150 ml Result Diagram: 05/14/1752905/14/17529 Objective Remarks VS-S Abd: obese,soft,stoma pink I&Os better and Labs-OK Assessment and Plan Assessment and Plan Stable with pain POD#2 Increase diet,transfer,back on home pain meds. Chandler Donaldson MD May 14, 2017 13:43
[2017-05-14] MEDS: MORPHINE SULFATE 30 MG TAB PO PRN ×2 (15:48→21:47)
[2017-05-15] VITALS: BP 167/82; PULSE 86; RESP 20; TEMP 98.9; O2SAT 93
[2017-05-15] MEDS: MORPHINE SULFATE 30 MG TAB PO PRN ×3 (01:59→14:43)
[2017-05-15] MEDS: METOCLOPRAMIDE HCL 10 MG/2 ML VIAL IVS SCH ×3 (02:00→12:13)
[2017-05-15 04:00] VITALS: BP 162/82; PULSE 87; RESP 18; TEMP 98.2; O2SAT 93
[2017-05-15 08:00] VITALS: BP 163/83; PULSE 83; RESP 18; TEMP 97.4; O2SAT 94
[2017-05-15] MEDS: ALVIMOPAN 12 MG CAPSULE - Post-op dosing PO SCH (09:54)
[2017-05-15] MEDS: PANTOPRAZOLE SODIUM 40 MG VIAL IVP SCH (09:54)
[2017-05-15] MEDS: TACROLIMUS 1 MG CAP PO SCH (09:54)
[2017-05-15] MEDS: MORPHINE SULFATE 30 MG CONTROLLED RELEASE TAB PO SCH (09:55)
[2017-05-15] MEDS: SODIUM CHLORIDE 0.9% FLUSH 10 ML FLUSH IV FLUSH SCH (09:56)
[2017-05-15] MEDS: amLODIPine BESYLATE 5 MG TAB PO SCH (09:56)
[2017-05-15] MEDS: D5-LR + KCL 20 MEQ INJ 1,000 ML IV SCH (10:12)
[2017-05-15 12:00] VITALS: BP 170/84; PULSE 79; RESP 18; TEMP 98.1; O2SAT 96
[2017-05-15 16:00] VITALS: BP 160/82; PULSE 82; RESP 18; TEMP 97.1; O2SAT 94
--- NOTE | 2017-05-15 16:43 | HHI.FF ---
Face to Face Verification Diagnosis: (1) Cancer of anal canal (2) Colostomy status Home Health Nursing Order: Medical education Signs/symptoms of disease process Medication education-adverse effect Wound care and dressing changes Nursing assessment with vital signs Instructions: Empty drain whenever full. Pt instructed as well. I have seen patient Edison Watson on 05/15/17. My clinical findings support the need for the requested home health care services because: Ltd mobility - disease progression Deconditioned w/ increased weakness Med compliance is questionable Limited ability to care for self Need for psychosocial assistance High risk of falls I certify that my clinical findings support that this patient is homebound because: Post-op weakness Impaired cognitive ability/safety Unsteady gait/balance Unsafe to leave home unassisted Need for psychosocial assistance Chandler Donaldson MD May 15, 2017 16:43
== END 2017-05-15 18:26 | disposition home health service (06) | DRG 330 ==
LOC: HSDI 11:40 → HCPC 18:45 → N07A 05-14 16:24
PROVIDERS: ADMIT Colon & Rectal Surgery; ATTEND Colon & Rectal Surgery
PROC: 0DTQ0ZZ Resection of Anus, Open Approach (ICD-10-PCS; 2017-05-12)
PROC: 0WUF07Z Supplement Abdominal Wall with Autologous Tissue Substitute, Open Approach (ICD-10-PCS; 2017-05-12)
PROC: 0KBM0ZZ Excision of Perineum Muscle, Open Approach (ICD-10-PCS; 2017-05-12)
PROC: 07BC0ZX Excision of Pelvis Lymphatic, Open Approach, Diagnostic (ICD-10-PCS; 2017-05-12)
PROC: 0D1N0Z4 Bypass Sigmoid Colon to Cutaneous, Open Approach (ICD-10-PCS; 2017-05-12)
PROC: 0WQF0ZZ Repair Abdominal Wall, Open Approach (ICD-10-PCS; 2017-05-12)
PROC: 0DBN0ZZ Excision of Sigmoid Colon, Open Approach (ICD-10-PCS; principal; 2017-05-12 14:20)
PROC: 0DTP0ZZ Resection of Rectum, Open Approach (ICD-10-PCS; 2017-05-12 14:20)
DX: C21.0 Malignant neoplasm of anus, unspecified (principal); Z94.4 Liver transplant status; I10 Essential (primary) hypertension; K43.9 Ventral hernia without obstruction or gangrene; F17.210 Nicotine dependence, cigarettes, uncomplicated; J44.9 Chronic obstructive pulmonary disease, unspecified; K21.9 Gastro-esophageal reflux disease without esophagitis; G89.29 Other chronic pain; Z92.21 Personal history of antineoplastic chemotherapy; Z92.3 Personal history of irradiation
CPT/HCPCS: 76937; 80048; 85007; 85025; 85027; 86850; 86900; 86901; 88305; 88309; 94150; C9113; J0690; J1100; J1170; J2175; J2250; J2270; J2370; J2405; J2765; J2930; J3010; J3410; J3480; J7120; J7507; J7613

== ENCOUNTER → 2018-01-22 | Day surgery (SDC) | payer OTHER ==
[~2018-01-22] VITALS: Ht 182.9 cm; Wt 115.5 kg
[~2018-01-22] MED LIST changes: +*morphine SULFATE 4 MG/ML PERIprocedure ONLY ONE; +ACETAMINOPHEN/HYDROcodone 325 MG/5 MG TAB PO PRN; +BACITRACIN TOP OINT 15 GM TUBE ONE; +BUPIVACAINE/EPINEPHRINE 0.5% PF 10 ML VIAL ONE; +CHLORHEXIDINE GLUCONATE 2 % 1 PACK (2 CLOTHS) TOPICAL PRN; +DO NOT ADM ANY ANTICOAGULANT DRUGS PRN; +FERRIC SUBSULFATE 8 ML TOP SOLN TOPICAL ONE; +LACTATED RINGER'S 1000 ML IV PRN; +LIDOCAINE 0.5%/EPINEPHrine 1:200,000 SOLN 50 ML VIAL ONE; +LIDOCAINE HCL 1% PF 5 ML SYRINGE OTHER ONE; +METOPROLOL TARTRATE 25 MG TAB PO PRN; +MULTTAB67 PO; +ONDANSETRON HCL 4 MG/2 ML VIAL IV PUSH ONE; +POVIDONE IODINE 5% (ANTISEPSIS KIT) 4 APPLICATIONS EACH NARE PRN; +PROPOFOL 200 MG/20 ML AMP IV ONE; +SODIUM CHLORID 0.9% 500 ML IV PRN; +ceFAZolin INJ 1,000 MG VIAL IV ONE
[2018-01-22 11:24] LABS: AUTOMATED NEUTROPHIL # 4.7 TH/MM3 (1.8-7.7); BASOPHIL % 0.5 % (0.0-2.0); EOSINOPHIL # 0.2 TH/MM3 (0-0.4); EOSINOPHIL % 3.5 % (0.0-4.0); HEMATOCRIT 39.2 % (39.0-51.0); HEMOGLOBIN 13.4 GM/DL (13.0-17.0); LYMPH % 12.7 % (9.0-44.0); LYMPHOCYTE # 0.8 TH/MM3 (1.0-4.8); MEAN CELL VOLUME 87.8 FL (80.0-100.0); MEAN CORPUSCULAR HEMOGLOBIN 30.1 PG (27.0-34.0); MEAN CORPUSCULAR HGB CONC 34.3 % (32.0-36.0); MEAN PLATELET VOLUME 9.9 FL (7.0-11.0); MONOCYTE # 0.4 TH/MM3 (0-0.9); NEUT % 76.3 % (16.0-70.0); PLATELET COUNT 136 TH/MM3 (150-450); RED BLOOD COUNT 4.46 MIL/MM3 (4.50-5.90); RED CELL DISTRIBUTION WIDTH 13.8 % (11.6-17.2); WHITE BLOOD COUNT 6.1 TH/MM3 (4.0-11.0)
--- NOTE | 2018-01-22 14:58 | MP ---
cc: Chandler Donaldson MD DATE OF OPERATION: 01/22/2018 PREOPERATIVE DIAGNOSIS: Unhealed perineal wound. POSTOPERATIVE DIAGNOSIS: Unhealed perineal wound. PROCEDURE PERFORMED: Opening and debriding of unhealed perineal wound. ANESTHESIA: General endotracheal. SURGEON: Chandler Donaldson MD ESTIMATED BLOOD LOSS: Minimal. OPERATIVE FINDINGS: This patient has had a previous liver transplant. Some years ago, he developed an anal carcinoma treated appropriately with radiation therapy, chemotherapy; however, the lesion did not totally resolve. For this reason, abdominal perineal resection was done at the end of 04/2017. He underwent a permanent colostomy and perineal wound closure. Omentum as an omental flap was placed down the left colic gutter into the pelvis. Since that time, he has had an unhealed perineal wound. Most of the wound was closed, but has had 2 sinus tracts with fluid and purulent drainage coming from this area. The 2 sinus tracts seemed to connect superficially. Since it has been over 8 months and the drainage is bothering him. we have decided to open the perineal wound and debride and see if we can get this to close with packing or by using a wound VAC. At surgery, the sinus tract anterior, just posterior to the scrotum and in the mid portion of the perineal wound connected with a probe in the superficial tissue and these areas were connected and this was approximately 4 inches in length. I opened this area and some purulent drainage drained, but it was only several millimeters. Mostly, it was fibrous tissue. Anteriorly, a slightly deeper sinus tract was palpated and on palpating this, this fibrous tissue was incised with electrocautery and I immediately saw omentum. There was no small bowel present, but there was omentum that was not adhesed to the pelvic floor. Because of this, I did not open the perineal wound any further as we did not want a perineal dehiscence and evisceration of small bowel. Therefore, some #1 PDS sutures were used and the fibrous tissue and this fibrous pelvic floor was reinforced closed with interrupted PDS sutures. OPERATIVE TECHNIQUE: The patient was placed on the table in the supine position. After adequate general endotracheal anesthesia, the legs were placed in exaggerated lithotomy position with candy cane stirrups. The area was prepped and draped in the usual manner. The 2 perineal sinus tracts were identified. The anterior one was draining cloudy fluid. A probe was placed through the posterior and the anterior one that connected and incision was made along the perineum skin that had previously healed and the wound was opened for a length about 4 inches. The fibrous tissue along this tract was curetted clean and directly posterior to the scrotum, there was an area which appeared to be a deeper sinus tract and in palpating this with my finger, my finger was able to enter the pelvis where there was a normal-appearing omental type fat present that was not adhesed to the wound. For this reason, we felt that we should reinforce this pelvic floor to prevent dehiscence and evisceration of any bowel contents or omentum through this wound. In reading my previous operative report, it was noted that he did have an omental flap placed down in the pelvis and the small bowel should be above this area. Nevertheless, multiple interrupted #1 PDS sutures were placed along this pelvic floor to reinforce it. The subcutaneous tissue external to that was debrided and excised of all fibrous tissue and then some Monsel solution was placed on this and the wound was packed. Dressings were applied. Sponge, needle and instrument counts were reported correct. The estimated blood loss was minimal. The patient tolerated the procedure well and left the operating room in good condition. MD CHANCE Garcia/ISABELLA , 01:56 PM , 02:57 PM
[2018-01-22 15:00] VITALS: BP 155/66; PULSE 69; RESP 16; TEMP 97.5; O2SAT 99
== END | disposition home or self-care (01) ==
LOC: HSDC 10:02
PROVIDERS: ATTEND Colon & Rectal Surgery
DX: T81.89XA Other complications of procedures, not elsewhere classified, initial encounter (principal); Z94.4 Liver transplant status; Z85.048 Personal history of other malignant neoplasm of rectum, rectosigmoid junction, and anus; Z92.3 Personal history of irradiation; Z92.21 Personal history of antineoplastic chemotherapy; Z01.818 Encounter for other preprocedural examination
CPT/HCPCS: 00400; 11042; 85025; J0690; J2270; J2405; J3010; J7120